=== PATIENT | male | born 1990 | race Hispanic/Latino ===

== ENCOUNTER 2023-01-02 02:16 | Emergency (ER) | payer OTHER ==
[~2023-01-02] VITALS: Ht 170.2 cm; Wt 88.5 kg
[2023-01-02 03:11] VITALS: BP 159/74
[2023-01-02] MEDS ORDERED: ACET-2079 PO (03:11)
[2023-01-02] MEDS ORDERED: AMOX1TAB16 PO (03:11)
[2023-01-02] MEDS ORDERED: IBUP-2070 PO (03:11)
[2023-01-02] MEDS ORDERED: IBUPROFEN 400 MG TABLET ONE (03:27)
[2023-01-02] MEDS ORDERED: IBUPROFEN 200 MG TAB ONE (03:27)
[2023-01-02] MEDS ORDERED: IBUPROFEN 600 MG TABLET PO ONE (03:30)
[2023-01-02] MEDS ORDERED: BENZOCAINE 20% 57 GM SPRAY TP SCH (03:30)
[2023-01-02] MEDS ORDERED: HYDROCODONE/ACETAMINOPHEN 10/325 MG TAB PO ONE (03:30)
== END 2023-01-02 03:31 | disposition home or self-care (01) ==
LOC: EDH 02:16
DX: K08.89 Other specified disorders of teeth and supporting structures (principal); E11.9 Type 2 diabetes mellitus without complications